=== PATIENT | male | born 1980 | race Two or more races ===

== ENCOUNTER 2018-08-24 09:18 | Emergency (ER) | payer OTHER ==
[2018-08-24 09:23] VITALS: BP 128/72; PULSE 88; TEMP 97.7; BMI 31.7
--- NOTE | 2018-08-24 09:49 | PDOC ---
History of Present Illness - General Chief Complaint: Back Pain Stated Complaint: BACK PAIN Time Seen by Provider: 08/24/18 09:36 History Source: Patient Exam Limitations: No Limitations - History of Present Illness Initial Comments: 08/24/18 10:05 Patient is a 38-year-old male with no past medical history who presents emergency department today for back pain. Patient states he awoke yesterday and had a slight pain in his mid back. He states that the pain as a nagging and didn 't go away yesterday. He woke up again this morning with slightly worsened upper back pain. He then stretched and felt his back completely seize. He has not taken any medication for the pain. Denies fevers, chills, frequency, urgency , hematuria, numbness and tingling/weakness to the extremities, saddle anesthesia, bladder/bowel incontinence. Past History - Travel Traveled outside of the country in the last 30 days: No Close contact w/someone who was outside of country & ill: No - Past Medical History Allergies/Adverse Reactions: Allergies Allergy/AdvReac Type Severity Reaction Status Date / Time No Known Allergies Allergy Verified 08/24/18 09:20 Home Medications: Ambulatory Orders Cyclobenzaprine HCl [Flexeril -] 10 mg PO HS #10 tablet 08/24/18 Ibuprofen 800 mg PO TID #30 tablet 08/24/18 Omeprazole 40 mg PO DAILY 08/24/18 COPD: No GI Disorders: Yes - Suicide/Smoking/Psychosocial Hx Smoking History: Former smoker Have you smoked in the past 12 months: No Information on smoking cessation initiated: No Review of Systems - Review of Systems Able to Perform ROS?: Yes Comments:: 08/24/18 09:49 CONSTITUTIONAL: Absent: fever, chills, diaphoresis, generalized weakness, malaise, loss of appetite GASTROINTESTINAL: Absent: abdominal pain, abdominal distension, nausea, vomiting, diarrhea, constipation, melena, hematochezia GENITOURINARY: Absent: dysuria, frequency, urgency, hesitancy, hematuria, flank pain, genital pain MUSCULOSKELETAL: Present: low back pain Absent: arthralgia, joint swelling SKIN: Absent: rash, itching, pallor NEUROLOGIC: Absent: headache, focal weakness or paresthesias, dizziness, unsteady gait, seizure, mental status changes, bladder or bowel incontinence PSYCHIATRIC: Absent: anxiety, depression, suicidal or homicidal ideation, hallucinations. Is the patient limited Afghan proficient: No *Physical Exam - Vital Signs Last Vital Signs Temp Pulse Resp BP Pulse Ox 97.7 F 88 18 128/72 100 08/24/18 09:21 08/24/18 09:21 08/24/18 09:21 08/24/18 09:21 08/24/18 09:21 - Physical Exam Comments: 08/24/18 09:49 GENERAL: Well developed, well nourished. Awake and alert. No acute distress. NECK: Supple. Full ROM. No JVD. Carotid pulses 2+ and symmetric, without bruits. No thyromegaly. No lymphadenopathy. MUSCULOSKELETAL TTP of the paraspinous muscles of T-12-L2 b/l with palpable knot. No midline tenderness. (-) straight leg raise Normal range of motion at all joints. No bony deformities or tenderness. No CVA tenderness. EXTREMITIES: No cyanosis. No clubbing. No edema. No calf tenderness. SKIN: Warm and dry. Normal capillary refill. No rashes. No jaundice. NEUROLOGICAL: Alert, awake, appropriate. Cranial nerves 2-12 intact. No deficits to light touch and temperature in face, upper extremities and lower extremities. No motor deficits in the in face, upper extremities and lower extremities. Normoreflexic in the upper and lower extremities. Normal speech. Toes are down- going bilaterally. Gait is normal without ataxia. PSYCHIATRIC: Cooperative. Good eye contact. Appropriate mood and affect. Medical Decision Making - Medical Decision Making 08/24/18 09:49 Pt is a 38 y/o M who presents with 2 days of midback pain. Pain worse with movement -TTP of the paraspinous muscles of T-12-L2 b/l with palpable knot. No midline tenderness. (-) straight leg raise -No trauma, or fever. No saddle anesthesia or bladder/bowel incontinence. No CVA tenderness. -Pt is neurologically intact on exam with no focal findings. -Toradol and flexerilgiven with relief of symptoms -DC home. Ortho follow up given for if symptoms do not resolve. -I discussed the physical exam findings, ancillary test results and final diagnoses with the patient. I answered all of the patient's questions. The patient was satisfied with the care received and felt comfortable with the discharge plan and treatment plan. The Patient agrees to follow up with the primary care physician/specialist within 24-72 hours. Return precautions were given. *DC/Admit/Observation/Transfer Diagnosis at time of Disposition: Back pain Qualifiers: Back pain location: back pain in unspecified location Chronicity: acute Back pain laterality: right Qualified Code(s): M54.9 - Dorsalgia, unspecified - Discharge Dispostion Disposition: HOME Condition at time of disposition: Stable Decision to Admit order: No - Referrals Referrals: Gavin Raya MD [Staff Physician] - - Patient Instructions Printed Discharge Instructions: DI for Thoracic Back Pain Additional Instructions: You have back pain due to a muscle spasm. Please take ibuprofen 800 mg 3 times a day not to exceed 3000 mg a day. You were also prescribed Flexeril. Please take this medication every 8 hours for the first day. Then take the medication before you go to bed. Do not drive after taking this medication as it may make you sleepy. You may use warm compresses on your back to help with her symptoms. Please follow-up with your primary care doctor. If your symptoms do not resolve in 3-5 days, follow-up with orthopedics. A referral has been provided for you. Return to the emergency department if you have worsening back pain, bladder or bowel incontinence, numbness and tingling in her legs, changes in the way you walk, or any new or worsening symptoms. - Post Discharge Activity Forms/Work/School Notes: Back to Work
[2018-08-24] MEDS ORDERED: CYCLOBENZAPRINE HCL 10 MG TABLET (FP) PO ONE (10:03)
[2018-08-24] MEDS ORDERED: KETOROLAC TROMETHAMINE 60 MG/2 ML VIAL IM ONE (10:03)
[2018-08-24] MEDS ORDERED: CYCLOBENZAPRINE HCL 10 MG TABLET (FP) ONE (10:06)
[2018-08-24] MEDS ORDERED: KETOROLAC TROMETHAMINE 60 MG/2 ML VIAL ONE (10:06)
== END 2018-08-24 10:24 | disposition home or self-care (01) ==
LOC: JERFT 09:18
PROC: 3E0233Z Introduction of Anti-inflammatory into Muscle, Percutaneous Approach (ICD-10-PCS; principal; 2018-08-24)
DX: M62.830 Muscle spasm of back (principal)
CPT/HCPCS: 99281-25

== ENCOUNTER 2019-06-30 16:48 | Emergency (ER) | payer OTHER ==
[2019-06-30 17:08] VITALS: BP 134/87; PULSE 72; TEMP 98; BMI 31.6
--- NOTE | 2019-06-30 17:10 | PDOC ---
Rapid Medical Evaluation Chief Complaint: Pain Time Seen by Provider: 06/30/19 17:05 Medical Evaluation: Allergies Allergy/AdvReac Type Severity Reaction Status Date / Time No Known Allergies Allergy Verified 08/24/18 09:20 06/30/19 17:06 I have performed a brief in-person evaluation of this patient. The patient presents with a chief complaint of:Lower abd pain today Pertinent physical exam findings:Stable, defer rest of exam to ER provider I have ordered the following:labs The patient will proceed to the ED for further evaluation. Discharge Disposition - Diagnosis Abdominal pain Qualifiers: Abdominal location: unspecified location Qualified Code(s): R10.9 - Unspecified abdominal pain - Referrals - Patient Instructions - Post Discharge Activity
[2019-06-30 17:47] LABS: BASO % 0.5 % (0-2.0); EOS % 1.8 % (0-4.5); HEMOGLOBIN 16.1 GM/dL (11.7-16.9); LYMPH % 33.1 % (8-40); MCH 28.1 pg (25.7-33.7); MCHC 33.6 g/dl (32.0-35.9); MEAN CELL VOLUME 83.8 fl (80-96); MEAN PLT VOLUME 9.1 fl (7.5-11.1); MONO % 9.1 % (3.8-10.2); NEUT % 55.5 % (42.8-82.8); PLATELET COUNT 272 K/MM3 (134-434); RBC 5.73 M/mm3 (4.00-5.60); RDW 12.4 % (11.9-15.9)
[2019-06-30 17:49] LABS: PH,URINE 7.5 (5.0-8.0); URINE APPEARANCE CLOUDY; URINE BILIRUBIN NEGATIVE (NEGATIVE); URINE COLOR YELLOW; URINE GLUCOSE (UA) NEGATIVE (NEGATIVE); URINE KETONE NEGATIVE (NEGATIVE); URINE LEUK ESTERASE NEGATIVE (NEGATIVE); URINE NITRITE NEGATIVE (NEGATIVE); URINE PROTEIN NEGATIVE (NEGATIVE); URINE UROBILINOGEN 0.2 mg/dL (0.2-1.0)
[2019-06-30 18:23] LABS: ALBUMIN 4.4 g/dl (3.4-5.0); BILIRUBIN,TOTAL 0.4 mg/dL (0.2-1); BLOOD UREA NITROGEN 16.9 mg/dL (7-18); CALCIUM 9.6 mg/dL (8.5-10.1); CREATININE 1.2 mg/dL (0.55-1.3); POTASSIUM 4.4 mmol/L (3.5-5.1)
[2019-06-30] MEDS ORDERED: morphine CARPU-JECT 4 MG/1 ML DISP.SYRIN IVPUSH ONE (20:47)
[2019-06-30] MEDS ORDERED: morphine SULFATE 4 MG/ML VIAL ONE (21:09)
--- NOTE | 2019-06-30 21:57 | PDOC ---
*Physical Exam - Vital Signs Last Vital Signs Temp Pulse Resp BP Pulse Ox 98 F 72 18 134/87 98 06/30/19 17:05 06/30/19 17:05 06/30/19 17:05 06/30/19 17:05 06/30/19 17:05 - Physical Exam Comments: 06/30/19 21:54 sitting on stretcher NAD soft non distended abdomen TTP over umbilicus with ~2cm protrusion, no overlying erythema or discoloration no rebound or guarding no testicular swelling or tenderess ED Treatment Course - LABORATORY CBC & Chemistry Diagram: 06/30/19 17:36 06/30/19 17:36 - ADDITIONAL ORDERS Additional order review: Laboratory Results 06/30/19 06/30/19 17:36 17:28 Sodium 140 Potassium 4.4 Chloride 104 Carbon Dioxide 28 Anion Gap 8 BUN 16.9 Creatinine 1.2 Est GFR (CKD-EPI)AfAm 86.53 Est GFR (CKD-EPI)NonAf 74.66 Random Glucose 70 L Calcium 9.6 Total Bilirubin 0.4 AST 20 ALT 40 Alkaline Phosphatase 104 Total Protein 8.0 Albumin 4.4 Lipase 123 Urine Color Yellow Urine Appearance Cloudy Urine pH 7.5 Ur Specific [place] 1.021 Urine Protein Negative Urine Glucose (UA) Negative Urine Ketones Negative Urine Blood Negative Urine Nitrite Negative Urine Bilirubin Negative Urine Urobilinogen 0.2 Ur Leukocyte Esterase Negative 06/30/19 17:36 RBC 5.73 H MCV 83.8 MCHC 33.6 RDW 12.4 MPV 9.1 Neutrophils % 55.5 Lymphocytes % 33.1 Monocytes % 9.1 Eosinophils % 1.8 Basophils % 0.5 - Medications Given in the ED: ED Medications Discontinued Medications Generic Name Dose Route Start Last Admin Trade Name Jayeshq PRN Reason Stop Dose Admin Morphine Sulfate 4 mg 06/30/19 20:47 06/30/19 21:12 Morphine Injection - IVPUSH 06/30/19 20:48 4 mg ONCE ONE Administration Medical Decision Making - Medical Decision Making 06/30/19 21:55 Abd pain not vomiting, moving bowels normal vitals 2cm umbilical hernia, reducible but markedly tender CTAP w/ oral and IV dispo per CT - likely home w/ surgery f/u *DC/Admit/Observation/Transfer Diagnosis at time of Disposition: Abdominal pain Qualifiers: Abdominal location: unspecified location Qualified Code(s): R10.9 - Unspecified abdominal pain - Referrals - Patient Instructions - Post Discharge Activity
--- NOTE | 2019-06-30 23:18 | PDOC ---
History of Present Illness - General History Source: Patient Exam Limitations: No Limitations <Phyllis Hernandez - Last Filed: 06/30/19 23:11> <Immanuel Lawson - Last Filed: 07/01/19 00:49> - General Chief Complaint: Pain Stated Complaint: ABD PAIN Time Seen by Provider: 06/30/19 17:05 Past History - Past Medical History COPD: No GI Disorders: Yes - Suicide/Smoking/Psychosocial Hx Smoking History: Never smoked Have you smoked in the past 12 months: No <DavidKariPhyllis - Last Filed: 06/30/19 23:11> <Immanuel Lawson - Last Filed: 07/01/19 00:49> - Past Medical History Allergies/Adverse Reactions: Allergies Allergy/AdvReac Type Severity Reaction Status Date / Time No Known Allergies Allergy Verified 06/30/19 17:08 Home Medications: Ambulatory Orders Cyclobenzaprine HCl [Flexeril -] 10 mg PO HS #10 tablet 08/24/18 Ibuprofen 800 mg PO TID #30 tablet 08/24/18 Omeprazole 40 mg PO DAILY 08/24/18 *Physical Exam - Vital Signs Last Vital Signs Temp Pulse Resp BP Pulse Ox 98 F 72 18 134/87 98 06/30/19 17:05 06/30/19 17:05 06/30/19 17:05 06/30/19 17:05 06/30/19 17:05 - Physical Exam General Appearance: No: Apparent Distress Respiratory/Chest: positive: Lungs Clear, Normal Breath Sounds. negative: Respiratory Distress Cardiovascular: positive: Regular Rhythm, Regular Rate, S1, S2. negative: Murmur Gastrointestinal/Abdominal: positive: Tender (at site of hernia), Soft, Hernia ( small bulge noted along periumbilical region, no change in color, site is tender to touch). negative: Distended, Guarding Integumentary: positive: Normal Color Neurologic: positive: Alert, Normal Mood/Affect <Kari Hernandezha - Last Filed: 06/30/19 23:11> - Vital Signs Last Vital Signs Temp Pulse Resp BP Pulse Ox 98 F 72 18 134/87 98 06/30/19 17:05 06/30/19 17:05 06/30/19 17:05 06/30/19 17:05 06/30/19 17:05 <Immanuel Lawson - Last Filed: 07/01/19 00:49> ED Treatment Course - LABORATORY CBC & Chemistry Diagram: 06/30/19 17:36 06/30/19 17:36 - ADDITIONAL ORDERS Additional order review: Laboratory Results 06/30/19 06/30/19 17:36 17:28 Sodium 140 Potassium 4.4 Chloride 104 Carbon Dioxide 28 Anion Gap 8 BUN 16.9 Creatinine 1.2 Est GFR (CKD-EPI)AfAm 86.53 Est GFR (CKD-EPI)NonAf 74.66 Random Glucose 70 L Calcium 9.6 Total Bilirubin 0.4 AST 20 ALT 40 Alkaline Phosphatase 104 Total Protein 8.0 Albumin 4.4 Lipase 123 Urine Color Yellow Urine Appearance Cloudy Urine pH 7.5 Ur Specific [place] 1.021 Urine Protein Negative Urine Glucose (UA) Negative Urine Ketones Negative Urine Blood Negative Urine Nitrite Negative Urine Bilirubin Negative Urine Urobilinogen 0.2 Ur Leukocyte Esterase Negative 06/30/19 17:36 RBC 5.73 H MCV 83.8 MCHC 33.6 RDW 12.4 MPV 9.1 Neutrophils % 55.5 Lymphocytes % 33.1 Monocytes % 9.1 Eosinophils % 1.8 Basophils % 0.5 - RADIOLOGY Radiology Studies Ordered: Category Date Time Status ABDOMEN & PELVIS CT WITH CONTR [CT] Stat CT Scan 06/30/19 20:47 Completed - Medications Given in the ED: ED Medications Discontinued Medications Generic Name Dose Route Start Last Admin Trade Name Freq PRN Reason Stop Dose Admin Morphine Sulfate 4 mg 06/30/19 20:47 06/30/19 21:12 Morphine Injection - IVPUSH 06/30/19 20:48 4 mg ONCE ONE Administration <Phyllis Hernandez - Last Filed: 06/30/19 23:11> - LABORATORY CBC & Chemistry Diagram: 06/30/19 17:36 06/30/19 17:36 - ADDITIONAL ORDERS Additional order review: Laboratory Results 06/30/19 06/30/19 17:36 17:28 Sodium 140 Potassium 4.4 Chloride 104 Carbon Dioxide 28 Anion Gap 8 BUN 16.9 Creatinine 1.2 Est GFR (CKD-EPI)AfAm 86.53 Est GFR (CKD-EPI)NonAf 74.66 Random Glucose 70 L Calcium 9.6 Total Bilirubin 0.4 AST 20 ALT 40 Alkaline Phosphatase 104 Total Protein 8.0 Albumin 4.4 Lipase 123 Urine Color Yellow Urine Appearance Cloudy Urine pH 7.5 Ur Specific [place] 1.021 Urine Protein Negative Urine Glucose (UA) Negative Urine Ketones Negative Urine Blood Negative Urine Nitrite Negative Urine Bilirubin Negative Urine Urobilinogen 0.2 Ur Leukocyte Esterase Negative 06/30/19 17:36 RBC 5.73 H MCV 83.8 MCHC 33.6 RDW 12.4 MPV 9.1 Neutrophils % 55.5 Lymphocytes % 33.1 Monocytes % 9.1 Eosinophils % 1.8 Basophils % 0.5 - Medications Given in the ED: ED Medications Discontinued Medications Generic Name Dose Route Start Last Admin Trade Name Devora PRN Reason Stop Dose Admin Morphine Sulfate 4 mg 06/30/19 20:47 06/30/19 21:12 Morphine Injection - IVPUSH 06/30/19 20:48 4 mg ONCE ONE Administration <Immanuel Lawson - Last Filed: 07/01/19 00:49> Medical Decision Making - Medical Decision Making 39 y/o M hx of asthma, vasectomy presents with periumbilical abdominal pain from today at 1 PM. Denies having this pain before. Denies fever, sob, cp, abd pain, n/v/d, urinary complaints, testicular pain. PE concerning for umbilical hernia CT A/P done which shows only fat containing hernia; no bowel herniation noted will refer to surgery stable for dc 06/30/19 23:12 <Phyllis Hernandez - Last Filed: 06/30/19 23:11> *DC/Admit/Observation/Transfer - Discharge Dispostion Decision to Admit order: No <Phyllis Hernandez - Last Filed: 06/30/19 23:11> - Attestations Physician Attestion: 07/01/19 00:49 I have reviewed the plan as documented and agree with current plan as documented. Electronically co-signed by Immanuel Lawson MD <Immanuel Lawson - Last Filed: 07/01/19 00:49> Diagnosis at time of Disposition: Umbilical hernia Qualifiers: Obstruction and gangrene presence: without obstruction or gangrene Qualified Code(s): K42.9 - Umbilical hernia without obstruction or gangrene - Discharge Dispostion Disposition: HOME Condition at time of disposition: Stable - Referrals Referrals: Alvaro Velasquez MD [Staff Physician] - 2 Days - Patient Instructions Printed Discharge Instructions: Abdominal Hernia Additional Instructions: Thank you for choosing [facility]. It was a pleasure taking care of you. You were noted to have fat containing hernia on your CT scan Please follow-up in surgery clinic for further evaluation Return to the Emergency Department if your symptoms worsen or persist, you have fever, shortness of breath, chest pain, severe abdominal pain, vomiting or other concerning symptoms.
== END 2019-06-30 23:54 | disposition home or self-care (01) ==
LOC: JER 16:48
PROC: 3E033NZ Introduction of Analgesics, Hypnotics, Sedatives into Peripheral Vein, Percutaneous Approach (ICD-10-PCS; principal; 2019-06-30)
DX: K42.9 Umbilical hernia without obstruction or gangrene (principal)
CPT/HCPCS: 36415; 74177-TC; 80053; 81003; 83690; 85025; 99283-25